=== PATIENT | female | born 1940 | race Caucasian/White ===

== ENCOUNTER 2021-12-29 08:26 | Emergency (ER) | payer OTHER ==
[2021-12-29] MEDS ORDERED: NA CHLORIDE 0.9% 500 ML ONE (08:58)
[2021-12-29 09:06] LABS: Absolute Lymphocytes (CBC) 1.2 K/uL (0.7-4.9); Hematocrit 44.3 % (36.0-45.0); Lymphocytes % 11.5 % (15.3-44.8); MCV 92.6 fL (80-100); MPV 8.4 fL (7.6-11.3); RBC Red Blood Cell Count 4.78 M/uL (3.86-4.86)
[2021-12-29 09:24] LABS: Albumin 3.4 g/dL (3.4-5.0); Bilirubin Total 0.6 mg/dL (0.2-1.0); Potassium 4.1 mmol/L (3.5-5.1); Protein, Total 6.7 g/dL (6.4-8.2)
[2021-12-29 09:54] LABS: Urine Blood Negative (Negative); Urine Glucose Negative (Negative); Urine Protein Negative (Negative)
--- NOTE | 2021-12-29 10:31 | RAD REPORT ---
EXAM DESCRIPTION: CT - Abdomen Pelvis W Contrast - 12/29/2021 9:49 am CLINICAL HISTORY: Abdominal pain, acute, nonlocalized COMPARISON: Abdomen Pelvis Wo Contrast dated 12/18/2021 TECHNIQUE: Biphasic, helical CT imaging of the abdomen and pelvis was performed following 100 ml non -ionic IV contrast. No oral contrast administered. All CT scans are performed using dose optimization technique as appropriate and may include automated exposure control or mA/KV adjustment according to patient size. FINDINGS: No acute lung base finding. No cardiomegaly or pericardial effusion. The liver, spleen, and pancreas show no suspicious findings. Cholecystectomy clips are present. No ab normal biliary tree dilatation. Symmetric renal function is seen with no hydronephrosis or suspicious renal mass. No pyelonephritis o r acute parenchymal process. Posterior right renal cyst has not changed over the short interval since 12/18. No adrenal abnormalities. Contracted bladder shows no suspicious finding. No stomach or small bowel abnormality. Large amount of stool fills the colon from cecum through splen ic flexure. There is prominent left-sided diverticulosis. Contrast material is present in the colon e xtending to the distal rectum. No contrast was administered for this study. This may be remnant PO co ntrast from a December 18 study. A 7-8 cm segment of the sigmoid colon shows circumferential wall thickening and edema. There is stran ding in the adjacent fat. This moderate diverticulitis pattern is not substantially different from . There is no extraluminal air, contrast or bowel content. No abscess has developed. No pneum atosis. No other site of inflammatory stranding. No hernia, mass or bulky lymphadenopathy. No suspicious bony findings. IMPRESSION: Moderate severity sigmoid diverticulitis pattern not substantially different from November 28. There is no extraluminal air, abscess or other emergent finding. Diverticulitis is the most likely etiology. Sigmoid malignancy is a differential consideration but le sser in likelihood. Follow-up colonoscopy can be performed after medical management of acute divertic ulitis.
--- NOTE | 2021-12-29 11:15 | EDPHYS ---
Physician Documentation [facility] Name: Kym Guallpa Age: 81 yrs Sex: Female : 1940 Arrival Date: 12/29/2021 Time: 08:27 Bed 6 Private MD: ED Physician Kurt Hinojosa HPI: 12/29 12:34 This 81 yrs old Female presents to ER via EMS with complaints of Abdominal Pain. kdr 12:34 The patient presents with abdominal pain in the upper abdomen. Onset: The kdr symptoms/episode began/occurred gradually, 1.5 week(s) ago. The symptoms do not radiate. Associated signs and symptoms: none. Pertinent positives: nausea, Pertinent negatives: anorexia, blood in stools, chest pain, diarrhea, dysuria, fever, headache, hematuria, shortness of breath, vomiting. The symptoms are described as achy, intermittent, vague, waxing/waning. Modifying factors: The symptoms are alleviated by nothing, the symptoms are aggravated by food, medication(s). Severity of pain: At its worst the pain was mild in the emergency department the pain is unchanged. The patient has experienced similar episodes in the past, a few times. The patient has been recently seen by a physician: the patient's primary care provider, was on abx for about five days (cipro/flagyl). Historical: - Allergies: 08:31 No Known Allergies; campos - PMHx: 08:31 Hypertensive disorder; Hypothyroidism; Diverticulitis; campos - Immunization history:: Adult Immunizations up to date. - Social history:: Smoking status: Patient denies any tobacco usage or history of. ROS: 12:34 Constitutional: Negative for fever, chills, and weight loss, Eyes: Negative for injury, kdr pain, redness, and discharge, Neck: Negative for injury, pain, and swelling, Cardiovascular: Negative for chest pain, palpitations, and edema, Respiratory: Negative for shortness of breath, cough, wheezing, and pleuritic chest pain, Back: Negative for injury and pain, : Negative for injury, bleeding, discharge, and swelling, MS/Extremity: Negative for injury and deformity, Skin: Negative for injury, rash, and discoloration, Neuro: Negative for headache, weakness, numbness, tingling, and seizure activity. Psych: Negative for depression, anxiety, suicide ideation, homicidal ideation, and hallucinations, Allergy/Immunology: Negative for hives, rash, and allergies, Endocrine: Negative for neck swelling, polydipsia, polyuria, polyphagia, and marked weight changes, Hematologic/Lymphatic: Negative for swollen nodes, abnormal bleeding, and unusual bruising. 12:34 Abdomen/GI: Positive for abdominal pain, nausea. Exam: 12:34 Constitutional: This is a well developed, well nourished patient who is awake, alert, kdr and in no acute distress. Head/Face: Normocephalic, atraumatic. Eyes: Pupils equal round and reactive to light, extra-ocular motions intact. Lids and lashes normal. Conjunctiva and sclera are non-icteric and not injected. Cornea within normal limits. Periorbital areas with no swelling, redness, or edema. Neck: Trachea midline, no thyromegaly or masses palpated, and no cervical lymphadenopathy. Supple, full range of motion without nuchal rigidity, or vertebral point tenderness. No Meningismus. Chest/axilla: Normal chest wall appearance and motion. Nontender with no deformity. No lesions are appreciated. Cardiovascular: Regular rate and rhythm with a normal S1 and S2. No gallops, murmurs, or rubs. Normal PMI, no JVD. No pulse deficits. Respiratory: Lungs have equal breath sounds bilaterally, clear to auscultation and percussion. No rales, rhonchi or wheezes noted. No increased work of breathing, no retractions or nasal flaring. Back: No spinal tenderness. No costovertebral tenderness. Full range of motion. Skin: Warm, dry with normal turgor. Normal color with no rashes, no lesions, and no evidence of cellulitis. MS/ Extremity: Pulses equal, no cyanosis. Neurovascular intact. Full, normal range of motion. Neuro: Awake and alert, GCS 15, oriented to person, place, time, and situation. Cranial nerves II-XII grossly intact. Motor strength 5/5 in all extremities. Sensory grossly intact. Cerebellar exam normal. Normal gait. Psych: Awake, alert, with orientation to person, place and time. Behavior, mood, and affect are within normal limits. 12:34 Abdomen/GI: Inspection: abdomen appears normal, Bowel sounds: active, all quadrants, Palpation: soft, mild abdominal tenderness, in the umbilical area. Vital Signs: 08:28 BP 141 / 62; Pulse 85; Resp 17; Temp 98.0; Pulse Ox 96% on R/A; Weight 61.23 kg; Height campos 5 ft. 5 in. (165.10 cm); 11:55 BP 136 / 62; Pulse 76; Resp 17; Temp 97.8; Pulse Ox 100% ; Pain 0/10; jh6 08:28 Body Mass Index 22.46 (61.23 kg, 165.10 cm) campos MDM: 11:14 Patient medically screened. kdr 12:34 Data reviewed: vital signs, nurses notes, lab test result(s), radiologic studies. kdr Counseling: I had a detailed discussion with the patient and/or guardian regarding: the historical points, exam findings, and any diagnostic results supporting the discharge/admit diagnosis, lab results, radiology results, the need for outpatient follow up. 12:39 Special discussion: Based on the patient's Hx, exam, and Dx evaluation, there is no kdr indication for emergent surgery or inpatient Tx. It is understood by the patient/guardian that if the Sx's persist or worsen they need to return immediately for re-evaluation. 12/29 08:28 Order name: CBC with Diff; Complete Time: 09:27 kdr 12/29 08:28 Order name: CMP; Complete Time: 09:27 kdr 12/29 08:28 Order name: Lipase; Complete Time: 09:27 kdr 12/29 08:43 Order name: CT Abd/Pelvis - IV Contrast Only; Complete Time: 11:09 kdr 12/29 09:54 Order name: Urine Dipstick-Ancillary; Complete Time: 11:09 EDMS 12/29 08:28 Order name: IV Saline Lock; Complete Time: 08:56 kdr 12/29 08:28 Order name: Labs collected and sent; Complete Time: 08:56 kdr 12/29 08:28 Order name: Urine Dipstick-Ancillary (obtain specimen); Complete Time: 09:49 kdr Administered Medications: 08:56 Drug: NS 0.9% 500 ml Route: IV; Rate: bolus; Site: right antecubital; campos 11:55 Drug: Augmentin (Amoxicillin-Clavulanate) 875 mg Route: PO; [facility] 11:59 Follow up: Response: No adverse reaction [facility] Disposition Summary: 12/29/21 11:14 Discharge Ordered Location: Home kdr Problem: new kdr Symptoms: have improved kdr Condition: Stable kdr Diagnosis - Diverticulitis of large intestine without perforation or abscess without bleeding kdr - Abdominal pain, Generalized kdr Followup: kdr - With: Private Physician - When: 2 - 3 days - Reason: If symptoms return, Further diagnostic work-up, Recheck today's complaints, Continuance of care, Re-evaluation by your physician Discharge Instructions: - Discharge Summary Sheet kdr - Diverticulitis, [id number] kdr - Abdominal Pain, Adult, [id number] kdr Forms: - Medication Reconciliation Form kdr - Thank You Letter kdr - Antibiotic Education kdr Prescriptions: - Augmentin 875-125 mg Oral Tablet - take 1 tablet by ORAL route every 12 hours for 10 days; 20 tablet; Refills: 0, kdr Product Selection Permitted - Zofran 4 mg Oral Tablet - take 1 tablet by ORAL route every 12 hours As needed; 6 tablet; Refills: 0, kdr Product Selection Permitted Signatures: Dispatcher [employer] Kurt Bach MD MD kdr Hastedt, Jennifer RN RN jh6 Georgina Gonzales RN RN campos
--- NOTE | 2021-12-29 11:15 | ER ---
Nurse's Notes [facility] Name: Kym Guallpa Age: 81 yrs Sex: Female : 1940 Arrival Date: 12/29/2021 Time: 08:27 Bed 6 Private MD: Diagnosis: Diverticulitis of large intestine without perforation or abscess without bleeding;Abdominal pain, Generalized Presentation: 12/29 08:28 Chief complaint: Patient states: lower abdominal pain. Coronavirus screen: Vaccine campos status: Patient reports receiving the 2nd dose of the covid vaccine. Ebola Screen: Patient denies travel to an Ebola-affected area in the 21 days before illness onset. Initial Sepsis Screen: Does the patient meet any 2 criteria? No. Patient's initial sepsis screen is negative. Does the patient have a suspected source of infection? No. Patient's initial sepsis screen is negative. Risk Assessment: Do you want to hurt yourself or someone else? Patient reports no desire to harm self or others. Onset of symptoms was December 29, 2021. 08:28 Method Of Arrival: EMS: [facility] campos 08:28 Acuity: [place] 3 campos Triage Assessment: 08:31 General: Appears in no apparent distress. Behavior is calm. Pain: Complains of pain in campos right lower quadrant and left lower quadrant. GI: Abdomen is flat, Bowel sounds present X 4 quads. Abd is soft and non tender Reports Pain is 7 out of 10 on a pain scale. Historical: - Allergies: 08:31 No Known Allergies; campos - PMHx: 08:31 Hypertensive disorder; Hypothyroidism; Diverticulitis; campos - Immunization history:: Adult Immunizations up to date. - Social history:: Smoking status: Patient denies any tobacco usage or history of. Screenin:33 Abuse screen: Denies threats or abuse. Denies injuries from another. Nutritional campos screening: No deficits noted. Tuberculosis screening: No symptoms or risk factors identified. Fall Risk None identified. Assessment: 08:45 General: Appears in no apparent distress. Behavior is calm, cooperative. Pain: jh6 Complains of pain in right lower quadrant and left lower quadrant Pain currently is 3 out of 10 on a pain scale. Quality of pain is described as crampy, Pain began suddenly, 4 hours ago. Is intermittent. GI: Abdomen is flat, non-distended, Last BM was December 29, 2021. Bowel sounds present X 4 quads. Abd is soft and non tender X 4 quads. Reports lower abdominal pain, Pain is 3 out of 10 on a pain scale. 09:41 Reassessment: Pt to CT now VIA wheelchair. Vital Signs: 08:28 BP 141 / 62; Pulse 85; Resp 17; Temp 98.0; Pulse Ox 96% on R/A; Weight 61.23 kg; Height campos 5 ft. 5 in. (165.10 cm); 11:55 BP 136 / 62; Pulse 76; Resp 17; Temp 97.8; Pulse Ox 100% ; Pain 0/10; jh6 08:28 Body Mass Index 22.46 (61.23 kg, 165.10 cm) ED Course: 08:27 Patient arrived in ED. ss 08:27 Kurt Hinojosa MD is Attending Physician. kdr 08:31 Triage completed. campos 08:31 Arm band placed on. campos 08:33 Patient has correct armband on for positive identification. Bed in low position. campos 08:33 No provider procedures requiring assistance completed. campos 09:02 Tracy Ridley, RN is Primary Nurse. [facility] 09:51 CT Abd/Pelvis - IV Contrast Only In Process Unspecified. EDMS 12:00 IV discontinued, intact, bleeding controlled, No redness/swelling at site. Pressure 6 dressing applied. Administered Medications: 08:56 Drug: NS 0.9% 500 ml Route: IV; Rate: bolus; Site: right antecubital; campos 11:55 Drug: Augmentin (Amoxicillin-Clavulanate) 875 mg Route: PO; [facility] 11:59 Follow up: Response: No adverse reaction [facility] Medication: 08:34 VIS not applicable for this client. Outcome: 11:14 Discharge ordered by . kdr 12:00 Discharged to home ambulatory. [facility] 12:00 Condition: good 12:00 Discharge instructions given to patient, family, Instructed on discharge instructions, follow up and referral plans. Demonstrated understanding of instructions, follow-up care, medications, Prescriptions given X 2. 12:00 Patient left the ED. [facility] Signatures: Dispatcher [employer] EDMS Kurt Hinojosa MD MD [facility] Richelle Geiger RN RN Tracy Ridley, NANDO COLLIER jh6 Au-Stager, Georgina, RN RN campos
[2021-12-29] MEDS ORDERED: AMOX/K CLAV 875 MG TAB ONE (11:49)
[2021-12-29 12:11] VITALS: BP 136/62; TEMP 97.8; O2SAT 100
== END 2021-12-29 12:00 | disposition home or self-care (01) ==
LOC: ER 08:26
DX: K57.32 Diverticulitis of large intestine without perforation or abscess without bleeding (principal); I10 Essential (primary) hypertension
CPT/HCPCS: 85025; 36415; 81003; 83690; 80053; 74177; 99284; Q9967; J7040

== ENCOUNTER 2021-12-31 14:18 | Inpatient (IN) | payer OTHER ==
[2021-12-31 15:14] VITALS: BMI 22.4
[2021-12-31 15:49] LABS: Absolute Lymphocytes (CBC) 1.5 K/uL (0.7-4.9); Hematocrit 43.8 % (36.0-45.0); Lymphocytes % 24.3 % (15.3-44.8); MCV 91.9 fL (80-100); MPV 8.6 fL (7.6-11.3); RBC Red Blood Cell Count 4.77 M/uL (3.86-4.86)
[2021-12-31] MEDS: NA CHLORIDE 0.9% 1,000 ML IV SCH (15:55)
[2021-12-31 16:00] LABS: Magnesium 2.4 mg/dL (1.8-2.4)
[2021-12-31] MEDS ORDERED: PIPER TAZO 3.375 GM in NA CHLORIDE 0.9% 100 ML IV ONE (16:00)
[2021-12-31] MEDS: ENOXAPARIN 40 MG/0.4 ML SQ SCH (18:24)
[2021-12-31] MEDS: METOPROLOL XL 25 MG TAB PO SCH (21:21)
[2022-01-01] MEDS: PIPER TAZO 3.375 GM in NA CHLORIDE 0.9% 100 ML IV SCH ×3 (01:44→17:57)
[2022-01-01] MEDS: NA CHLORIDE 0.9% 1,000 ML IV SCH ×2 (05:20→08:24)
--- NOTE | 2022-01-01 06:41 | HP ---
Date of Admission: 12/31/2021 Chief Complaint: Abdominal pain. History Of Present Illness: This is an 81-year-old very pleasant female patient who came into office about 2 weeks ago with lower abdominal pain. she was diagnosed as having acute diverticu litis and was started on Cipro and metronidazole for 10 days and day after I saw her, she had a CAT s can of abdomen and pelvis done, which was on December 18, 2021, showing moderate diverticulitis without a ny complications. The patient was seen for followup after the CAT scan was done after she started [facility] antibiotic and her symptoms had started to show some improvement. She had side effect with anti biotic with some mild soreness, but she did finish her antibiotic last week on Thursday and then on Thu, which is on December 29, 2021, she ended up in the emergency room again with different type of abdomi nal pain in the lower abdomen and more or less it is constant. Denies any fever, nausea, vomiting. She feels very weak, has poor appetite. After she ended up in the ER, she was re-evaluated, blood wo rk was done, repeat CAT scan showed persistence of diverticulitis changes compared to previous CAT sc an about 10 days ago and there was no complication noted. So patient was discharged from the ER to o home with Augmentin, which she is taking and today she came to see me with all these complaints and failure of outpatient antibiotic therapy. Decision was made to admit her to hospital. Allergies: TO CLINDAMYCIN CAUSING RASH AND ITCHING AND SULFA ALSO CAUSING RASH AND ITCHING. Medications: She takes, 1.Levothyroxine 75 mcg daily. 2.Metoprolol 25 mg 2 times a day. 3.Atorvastatin 10 mg daily. 4.Chlordiazepoxide/Clidinium 2.5/5 mg 1 capsule 3 times a day as needed. Review of Systems: GI: As mentioned above. Constitutional: As mentioned above. All other systems reviewed and negative. Past Medical History: Significant for hypothyroidism, impaired fasting glucose, burning mouth syndro me, hypertension, hyperlipidemia, gastroesophageal reflux disease, irritable bowel syndrome, divertic ulosis, cervical and lumbar spinal stenosis, osteoarthritis at multiple sites, osteopenia. Past Surgical History: Significant for cholecystectomy, appendectomy, , hysterectomy, back surgery. Family History: Father had coronary artery disease and hypertension. Mother, hypertension and strok e. Sister has coronary artery disease, hypertension, hyperlipidemia. Social History: Negative for smoking. Negative for alcohol use. Physical Examination: Vital Signs: Today at office when she was evaluated, blood pressure 116/70, pulse 78, temperature 98 degrees Fahrenheit, respiratory rate 18, weight 136.2 pounds, height 66 inches. General: Awake, alert, oriented, not in distress. HEENT: Head atraumatic, normocephalic. Conjunctivae nonerythematous. Sclerae white. Mouth, no thr ush or edema noted. Ears/Nose, no mass, lesion, discharge noted. Neck: Supple. No JVD, lymph nodes, bruit, thyromegaly noted. Lungs: Bilateral good equal air entry. Clear to auscultation. No rhonchi. No rales. Heart: Normal heart sounds, no murmur or gallop. Abdomen: Presence of tenderness in suprapubic and left lower quadrant. No rebound tenderness. Dio l sounds normoactive. No distention. No hepatosplenomegaly. No bruit. Extremities: No leg edema. No calf tenderness. Skin: No rash, ulcer, cellulitis. Lymphatics: No lymph node enlargement in neck, supraclavicular, infraclavicular region. Neuro: No focal neurological deficit. Chest: Unremarkable. External Genitalia: Deferred. Rectal: Deferred. Laboratory Data: White count 6.4, hemoglobin 14.7, platelets 276. Sodium 140, potassium 4, chloride 105, bicarb 31, BUN 8, creatinine 0.66, glucose 95, magnesium 2.4. CAT scan from 12/18/2021 and 08/2021 both shows moderate diverticulitis changes without any perforation. No abscess. Impression: 1.Acute diverticulitis without perforation, without bleeding. 2.Hypertension. 3.Hyperlipidemia. 4.Impaired fasting glucose. 5.Gastroesophageal reflux disease. 6.Irritable bowel syndrome. 7.Osteoarthritis, multiple sites. Plan: Admit patient to hospital for further evaluation and management of this problem. The patient is appropriate for inpatient and is expected to spend 2 midnights in hospital. The patient was admit emmett because of failure of outpatient oral antibiotic therapy, but she took Cipro and metronidazole fo r 10 days and just recently started taking Augmentin a couple of days ago from emergency room and so far she has failed outpatient antibiotic therapy, so she was admitted to the hospital. We will go ah ead and keep her on clear liquid diet. DVT prophylaxis with Lovenox will be given per order. Home m edications will be continued per order and we will give her IV Zosyn 3.375 g q.6 hours. The patient had appointment to see Dr. Kwok on outpatient basis today and I have advised her to cancel that appoi ntment and reschedule to see him in next 10-14 days. I will see her tomorrow for followup. Details and plan of treatment discussed with her. Her last colonoscopy was on July 15, 2021, showing dive rticulosis and polyps. INGRID/MODL Voice ID: [id number]
[2022-01-01] MEDS: LEVOTHYROXINE SOD 0.075 MG TAB PO SCH (07:21)
[2022-01-01] MEDS: METOPROLOL XL 25 MG TAB PO SCH ×2 (08:21→20:21)
[2022-01-01] MEDS: ENOXAPARIN 40 MG/0.4 ML SQ SCH (17:56)
[2022-01-01] MEDS: ENSURE CLEAR 200 ML CAN PO SCH (20:34)
[2022-01-02] MEDS: PIPER TAZO 3.375 GM in NA CHLORIDE 0.9% 100 ML IV SCH ×3 (00:57→17:18)
[2022-01-02] MEDS: NA CHLORIDE 0.9% 1,000 ML IV SCH (03:38)
--- NOTE | 2022-01-02 06:27 | PN ---
Date of Progress Note: 01/01/2022 Subjective: The patient was seen this morning for followup. She was lying in bed, not in distress. Reported that her abdominal pain is somewhat better today, compared to yesterday. Denies any nausea , vomiting. She is tolerating clear liquid diet well. Objective: Vital Signs: Reviewed. HEENT: Unremarkable. Lungs: Clear to auscultation. Cardiac: Heart sounds normal. Abdomen: Soft. Bowel sounds normal. No guarding, rigidity, distention. The patient has mild tender ness in left lower quadrant and suprapubic region which is better today than yesterday. No rebound t enderness. Extremities: No leg edema. Impression: 1.Acute diverticulitis. 2.Hypertension. 3.Hyperlipidemia. Plan: We will go ahead and continue to keep her on clear liquid diet. Continue IV Zosyn. We will e ncourage her to ambulate today. Continue current home medications. I will see her tomorrow for foll owup, possible discharge to go home tomorrow depending on her condition. INGRID/MODL Voice ID: [id number] Report ID: [id number]
[2022-01-02] MEDS: LEVOTHYROXINE SOD 0.075 MG TAB PO SCH (06:58)
[2022-01-02 07:52] LABS: Absolute Lymphocytes (CBC) 1.5 K/uL (0.7-4.9); Hematocrit 42.5 % (36.0-45.0); Lymphocytes % 32.5 % (15.3-44.8); MCV 91.1 fL (80-100); MPV 8.5 fL (7.6-11.3); RBC Red Blood Cell Count 4.67 M/uL (3.86-4.86)
[2022-01-02 08:05] LABS: Magnesium 2.2 mg/dL (1.8-2.4); Potassium 3.9 mmol/L (3.5-5.1)
[2022-01-02] MEDS: ENSURE CLEAR 200 ML CAN PO SCH ×2 (09:00→21:00)
[2022-01-02] MEDS: METOPROLOL XL 25 MG TAB PO SCH ×2 (10:30→21:01)
[2022-01-02] MEDS: ENOXAPARIN 40 MG/0.4 ML SQ SCH (17:18)
[2022-01-02 21:17] VITALS: O2SAT 98
[2022-01-03] MEDS: PIPER TAZO 3.375 GM in NA CHLORIDE 0.9% 100 ML IV SCH (00:03)
[2022-01-03] MEDS: NA CHLORIDE 0.9% 1,000 ML IV SCH (00:03)
--- NOTE | 2022-01-03 00:44 | PN ---
Date of Progress Note: 01/02/2022 Subjective: The patient was seen this morning for followup. No new complaints or problems reported by the patient. Lying in bed, not in any distress. Her abdominal pain is better, but not resolved. Objective: Vital Signs: Reviewed. HEENT: Unremarkable. Lungs: Clear to auscultation. Heart: Sounds normal. Abdomen: Soft. Bowel sounds normal. No guarding, rigidity. No rebound tenderness. The patient do es have mild tenderness in suprapubic and left lower quadrant. No rebound tenderness. Overall, the degree of tenderness is less today compared to yesterday. Extremities: No leg edema. Impression: 1.Acute diverticulitis. 2.Hypertension. 3.Hyperlipidemia. Plan: We will continue current IV fluid. Continue IV antibiotics. Advance diet from clear liquid t o full liquid diet. Ambulation was encouraged. I will see her tomorrow for followup. Possible disc harge to home tomorrow. INGRID/MODL Voice ID: [id number] Report ID: [id number]
[2022-01-03] MEDS: LEVOTHYROXINE SOD 0.075 MG TAB PO SCH (06:40)
[2022-01-03 09:04] VITALS: BP 151/84; TEMP 97.5
--- NOTE | 2022-01-04 01:08 | DS ---
Date of Discharge: 01/03/2022 The patient was seen this morning for followup. No new complaints or problems reported by the patien t. She was lying in bed, not in distress, feeling much better this morning, and as soon as I walked into her room, she reports that she is ready to go home. She is feeling much better and her abdomina l pain has practically gone away as she reports. Physical Examination: Vital Signs: Reviewed. HEENT: Unremarkable. Lungs: Bilateral good equal air entry. Clear to auscultation. Heart: Sounds normal. Abdomen: Soft. Bowel sounds normal. No guarding or rigidity. No rebound tenderness. Bowel sounds normoactive. Extremities: No leg edema. Hospital Course: This is 81 years old, was admitted to the hospital with acute diverticulitis and sh e failed outpatient oral antibiotic therapy. She took 10 days of Cipro and metronidazole and did not improve and ended up in the emergency room. Repeat CAT scan had shown persistent changes of diverti culitis, which was unchanged from prior CAT scan, which was about 12-14 days before this CAT scan and the patient was sent home with Augmentin and she came to see me 2 days after visit to emergency room , and considering not improving with oral antibiotic therapy, she was admitted to the hospital. Afte r she was admitted to the hospital, she was started on a clear liquid diet and started on IV Zosyn. DVT prophylaxis was given, using Lovenox. Overall, her condition improved significantly on a day-to- day basis during this hospitalization, and today, the patient reports that her pain has practically g one away and she was initially on clear liquid diet as of yesterday, we advanced it to full liquid di et, and today, I had given her instruction and I would like , which is low-fiber diet for t he next week to two weeks. The patient has an appointment to see me next week and she was encouraged to keep that appointment. Final Diagnoses: 1.Acute diverticulitis without perforation, without bleeding. 2.Hypertension. 3.Hyperlipidemia. 4.Impaired fasting glucose. 5.Gastroesophageal reflux disease. 6.Irritable bowel syndrome. 7.Osteoarthritis, multiple sites. Laboratory Data: Upon admission, white count 6.4, hemoglobin 14.7, platelets 276, and yesterday, whi te count 4.5, hemoglobin 14.4, platelets 276. Upon admission, sodium 140, potassium 4, chloride 105, bicarb 31, BUN 8, creatinine 0.66, glucose 95. Yesterday, sodium 141, potassium 3.9, chloride 108, bicarb 31, BUN 4, creatinine 0.79, glucose 95, magnesium 2.2. Discharge Medications And Instructions: 1.Continue all prior home medications including antibiotic, which is Augmentin. 2.Follow up at my office next week as per your appointment. 3.Diet, low-fiber diet. INGRID/MODL Voice ID: [id number] Report ID: [id number]
== END 2022-01-03 10:00 | disposition home or self-care (01) | DRG 392 ==
LOC: 2ND 14:18
PROVIDERS: ADMIT Internal Medicine; ATTEND Internal Medicine
DX: K57.92 Diverticulitis of intestine, part unspecified, without perforation or abscess without bleeding (principal); I10 Essential (primary) hypertension; E78.5 Hyperlipidemia, unspecified; R73.01 Impaired fasting glucose; K21.9 Gastro-esophageal reflux disease without esophagitis; K58.9 Irritable bowel syndrome, unspecified; M15.9 Polyosteoarthritis, unspecified; E03.9 Hypothyroidism, unspecified; M85.80 Other specified disorders of bone density and structure, unspecified site; M48.02 Spinal stenosis, cervical region; M48.061 Spinal stenosis, lumbar region without neurogenic claudication; Z88.2 Allergy status to sulfonamides; Z88.3 Allergy status to other anti-infective agents; Z90.49 Acquired absence of other specified parts of digestive tract; Z90.710 Acquired absence of both cervix and uterus; Z82.49 Family history of ischemic heart disease and other diseases of the circulatory system; Z82.3 Family history of stroke
CPT/HCPCS: 36415; 74177; 80048; 80053; 81003; 83690; 83735; 85025; 99284; J1650; J2543; J7030; J7040; Q9967; U0003

== ENCOUNTER → 2022-10-22 | Day surgery (SDC) | payer OTHER ==
--- NOTE | 2022-10-23 10:25 | RAD REPORT ---
EXAM DESCRIPTION: US - Breast Core BX w/US Guidance - 10/22/2022 11:15 am CLINICAL HISTORY: ICD N63.11, R93.8 COMPARISON: October 09, 2022 ultrasound TECHNIQUE: The risks, benefits alternatives to the procedure were explained to the patient and infor med consent obtained. Skin, subcutaneous and breast tissues anesthetized with lidocaine. Under sonographic guidance, three 14 gauge vacuum assisted core biopsies of the previously described 7 millimeter mass within the retroareolar right breast were obtained. 2 centimeter specimens taken. Materials given to pathology. Subsequently a localizing clip was placed. Patient experienced no immediate complication Sonographic evaluation of the additional previously described 7 millimeter vague hypoechoic structure was performed. This has the appearance of fibroglandular tissue rather than a mass so a biopsy of th is was not performed. IMPRESSION: Vacuum assisted core biopsies of the right breast mass
== END ==
LOC: DS 09:11
PROVIDERS: ATTEND Obstetrics & Gynecology
DX: N60.81 Other benign mammary dysplasias of right breast (principal)
CPT/HCPCS: 19083; 88305

== ENCOUNTER 2024-06-29 12:21 | Emergency (ER) | payer OTHER ==
--- OUTSIDE RECORDS SUMMARY | 2024-06-29 12:24 | XMS REPORT | Continuity of Care Document ---
Author Name Unknown Address [address] [facility] 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 Role Phone Mark PORTER, Augustin Rush Primary Care Physician [phone] Sukhwinder Perez Attending Clinician Unavailable Leo Amos MD Attending Clinician [phone] LEO AMOS Attending Clinician Unavail able Kristi Sharma MA Attending Clinician UnavailBrooks Morejon Attending Clinician Unavailabl e [email or web address] Attending Clinician Unavaila ble FOG_A_Provider Attending Clinician Unavailable Sukhwinder Perez Attending Clinician [phone] Sukhwinder Perez Admitting Clinician Unavailable [email or web address] Admitting Clinician Unavaila ble FOG_A_Provider Admitting Clinician Unavailable KNOW, DOES_NOT Admitting Clinician Unavailable Payers Payer Name Policy Type Policy Number Effective Date Expirati on Date Source [facility] MEDICARE ADVANTAGE Medicare [id number] 2023 00:00:00 [facility] [id number] [facility] (MEDICARE REPLACEMENT/ADVANTA GE - PPO) [id number] Problems Condition Name Condition Details Condition Category Status Onset Date Resolution Date Last Treatment Date Treating Clinician Comments Source Lumbar radiculopa thy Lumbar Radiculopa thy Problem Active 01-12 00:00: 00 [facility] Spinal stenosis of lumbar region Spinal Stenosis of Lumbar Region Problem Active 01-11 00:00: 00 [facility] 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 Problem Active 01-11 00:00: 00 [facility] Stenosis of spinal canal due to subluxatio n Stenosis of Spinal Canal Due to Subluxatio n Problem Active 01-11 00:00: 00 [facility] Lumbar spondyloli sthesis Lumbar Spondyloli sthesis Problem Active 01-11 00:00: 00 [facility] Dizziness Dizziness Disease Active 11-14 00:00: 00 Mirna Llamas Headache Headache Disease Active 11-14 00:00: 00 Mirna Llamas Hyperlipid emia Hyperlipid emia Disease Active 11-14 00:00: 00 Mirna Llamas Memory loss Memory loss Disease Active 11-14 00:00: 00 Mirna Llamas Repeated falls Repeated falls Disease Active 11-14 00:00: 00 Mirna Llamas 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 ) with memory loss Disease Active 11-14 00:00: 00 Mirna Llamas Acquired renal cystic disease Acquired Renal Cystic Disease Problem Active 10-15 00:00: 00 [facility] Mass of right breast Mass of Right Breast Problem Active 10-15 00:00: 00 [facility] Inconclusi ve mammograph y finding Inconclusi ve Mammograph y Finding Problem Active 4-05 00:00: 00 [facility] Abnormal findings on diagnostic imaging of breast Abnormal Findings on Diagnostic Imaging of Breast Problem Active 4-05 00:00: 00 [facility] Abdominal distension , gaseous Abdominal Distension , Gaseous Problem Active 3-16 00:00: 00 [facility] Spondylosi s with radiculopa thy Spondylosi s with Radiculopa thy Problem Active 8-19 00:00: 00 [facility] 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 Problem Active 8-19 00:00: 00 [facility] Neck pain Neck Pain Problem Active 8- 00:00: 00 [facility] Screening mammograph y Screening Mammograph y Problem Active 2 00:00: 00 [facility] Fibrocysti c disease of breast Fibrocysti c Disease of Breast Problem Active 2015-06 0 00:00: 00 [facility] Radiculopa thy, lumbar region Radiculopa thy, lumbar region Disease Active 2014-06 00:00: 00 Mirna Mcallister [facility] Spinal stenosis, cervical region Spinal stenosis, cervical region Disease Active 2014-06 00:00: 00 Mirna Mcallister [facility] Essential hypertensi on Essential Hypertensi on Problem Active 03-26 00:00: 00 [facility] Atrophic vaginitis Atrophic Vaginitis Problem Active 03-26 00:00: 00 [facility] Menopause present Menopause Present Problem Active 03-26 00:00: 00 [facility] Gynecologi malissa examinatio n abnormal Gynecologi malissa Examinatio n Abnormal Problem Active 03-26 00:00: 00 [facility] Common peroneal neuropathy Common peroneal neuropathy Disease Active 12-02 00:00: 00 Mirna Llamas Essential hypertensi on Essential hypertensi on Disease Active 11-24 00:00: 00 Mirna Mcallister [facility] Hypothyroi dism Hypothyroi dism Disease Active 11-24 00:00: 00 Mirna Llamas Muscle wasting and atrophy, not elsewhere classified , unspecifie d site Muscle wasting and atrophy, not elsewhere classified , unspecifie d site Disease Active 11-24 00:00: 00 Mirna Llamas Allergies, Adverse Reactions, Alerts Allergy Name Allergy Type Status Severity Reaction(s) Onset Date Inactive Date Treating Clinician Comments Source No Known Allergie s DA Active U 01-24 00:00: 00 [facility] Sulfa Antibiot ics Drug Allergy Active Unknown 11-30 00:00: 00 Mirna prieto [place] Muriel SULFA ANTIBIOT ICS Drug Class Active Unknown 11-30 00:00: 00 [facility] Clindamy sergey Allergy to substanc e Active 11-14 00:00: 00 Mirna prieto Esvin Muriel Sulfamet hoxazole -Trimeth oprim Allergy to substanc e Active 11-14 00:00: 00 Mirna prieto [place] Muriel CLINDAMY SERGEY DRUG INGREDI Active 11-14 00:00: 00 [facility] SULFAMET HOXAZOLE -TRIMETH OPRIM DRUG INGREDI Active 11-14 00:00: 00 [facility] Sulfa (Sulfona mide Antibiot ics) DA Active [place] REPORTED BY PHARMACY 03-05 00:00: 00 [facility] SULFA (SULFONA MIDE ANTIBIOT ICS) Allergy to substanc e Active Rash [facility] Social History Social Habit Start Date Stop Date Quantity Comments Source Gender identity 2023-09-19 15:47:37 Identifies as female gender (finding) [facility] Sexual orientation [facility] History of tobacco use Cigarette Smoker [facility] ASSERTION Possible [facility] Alcoholic beverage intake 2024-06-16 00:00:00 2024-06-16 00:00:00 Lifetime non-drinker (finding) [facility] History of Social function 2024-06-16 00:00:00 2024-06-16 00:00:00 [facility] Tobacco use and exposure 2023-12-01 00:00:00 2023-12-01 00:00:00 Smokeless tobacco non-user [facility] Smoking Status Start Date Stop Date Source Ex-smoker 2023-12-01 00:00:00 2023-12-01 00:00:00 M pee Mcallister [facility] Medications Ordered Medication Name Filled Medication Name Start Date Stop Date Current Medication? Ordering Clinician Indication Dosage Frequency Signature (SIG) Comments Components Source atorvastati n (Lipitor) 40 MG tablet atorvastati n (Lipitor) 40 MG tablet 2023-06 09:38: 13 Yes 40mg QD Take 40 mg by mouth 1 time each day. Mirna Mcallister [facility] memantine (Namenda) 5 MG tablet memantine (Namenda) 5 MG tablet 2023-06 00:00: 00 11-29 23:59 :00 No 5mg Q.5D Take 1 tablet by mouth in the morning and 1 tablet in the evening. [facility] clidinium-c hlordiazePO XIDE (Librax) 5-2.5 MG capsule clidinium-c hlordiazePO XIDE (Librax) 5-2.5 MG capsule 11-30 12:04: 25 Yes 1{capsu le} [id number] 3D Take 1 capsule by mouth 3 times a day as needed for cramping. [facility] Multiple Vitamin (multivitam in) capsule Multiple Vitamin (multivitam in) capsule 11-30 12:04: 25 Yes 1{capsu le} QD Take 1 capsule by mouth 1 time each day. Mirna prieto [facility] cholecalcif juventino (Vitamin D-3) 50 MCG (1999) tablet cholecalcif juventino (Vitamin D-3) 50 MCG (1999) tablet 11-30 12:04: 25 Yes 1000U QD Take 1,000 Units by mouth 1 time each day. [facility] zinc gluconate 50 MG tablet zinc gluconate 50 MG tablet 11-30 12:04: 25 Yes 50mg QD Take 50 mg by mouth 1 time each day. [facility] magnesium oxide (Mag-Ox) 250 MG tablet magnesium oxide (Mag-Ox) 250 MG tablet 11-30 12:00: 58 Yes 250mg QD Take 250 mg by mouth 1 time each day. Mirna Mcallister [facility] memantine (Namenda) 5 MG tablet memantine (Namenda) 5 MG tablet 6-04 00:00: 00 06-02 00:00 :00 No 5mg Q.5D Take 1 tablet by mouth in the morning and 1 tablet in the evening. Mirna Mcallister [facility] memantine (Namenda) 5 MG tablet memantine (Namenda) 5 MG tablet 18 00:00: 00 11-30 00:00 :00 No 5mg Q.5D Take 5 mg by mouth in the morning and 5 mg in the evening. Mirna Mcallister [facility] chlordiazep oxide-clidi nium 5 mg-2.5 mg capsule 1 capsule before meals; Twice a day chlordiazep oxide-clidi nium 5 mg-2.5 mg capsule 1 capsule before meals; Twice a day -18 00:00: 00 No chlordiaze poxide-cli dinium 5 mg-2.5 mg capsule 1 capsule before meals; Twice a day [facility] metoprolol tartrate 25 mg tablet 1 tablet; Twice a day metoprolol tartrate 25 mg tablet 1 tablet; Twice a day 3-18 00:00: 00 No metoprolol tartrate 25 mg tablet 1 tablet; Twice a day [facility] Synthroid 75 mcg tablet 1 tablet; Once a day Synthroid 75 mcg tablet 1 tablet; Once a day -18 00:00: 00 No Synthroid 75 mcg tablet 1 tablet; Once a day [facility] Vitamin B12 Vitamin B12 3-18 00:00: 00 No Vitamin B12 [facility] Vitamin C Vitamin C 3-18 00:00: 00 No Vitamin C [facility] pantoprazol e (ProtoNix) 40 MG EC tablet pantoprazol e (ProtoNix) 40 MG EC tablet 2-20 00:00: 00 Yes 40mg Take 40 mg by mouth in the morning. Take before meals. Mirna Mcallister [facility] biotin 5 MG capsule biotin 5 MG capsule 7-23 00:00: 00 06-16 00:00 :00 No 0 Refill(s) Mirna Mcallister [facility] B Complex Vitamins (B COMPLEX 100 PO) B Complex Vitamins (B COMPLEX 100 PO) 01-18 00:00: 00 06-16 00:00 :00 No 0 Refill(s) Mirna Llamas ascorbic acid (Vitamin C) 500 mg chewable tablet ascorbic acid (Vitamin C) 500 mg chewable tablet 01-18 00:00: 00 11-30 00:00 :00 No PO, Daily, 0 Refill(s) Mirna Mcallister [facility] levothyroxi ne (Synthroid) 75 MCG tablet levothyroxi ne (Synthroid) 75 MCG tablet 09-10 00:00: 00 Yes 75ug 75 microgram = 1 tab, PO, Daily, 0 Refill(s) Mirna Llamas metoprolol tartrate (Lopressor) 25 MG tablet metoprolol tartrate (Lopressor) 25 MG tablet 09-10 00:00: 00 Yes 25mg 25 mg = 1 tab, PO, BID, 0 Refill(s) Mirna Llamas Cyanocobala min (VITAMIN B-12 CR PO) Cyanocobala min (VITAMIN B-12 CR PO) 09-10 00:00: 00 06-16 00:00 :00 No 1000mg QD 0 Refill(s) Mirna Llamas clidinium-c hlordiazePO XIDE (Librax) 5-2.5 MG capsule clidinium-c hlordiazePO XIDE (Librax) 5-2.5 MG capsule 09-10 00:00: 00 11-30 00:00 :00 No 2{capsu le} Take 2 capsules by mouth in the morning and 2 capsules at noon and 2 capsules in the evening and 2 capsules before bedtime. Take before meals. Mirna Mcallister [facility] amoxicillin 875 mg-potassiu m clavulanate 125 mg tablet TAKE 1 TABLET BY MOUTH EVERY 12 HOURS FOR 10 DAYS amoxicillin 875 mg-potassiu m clavulanate 125 mg tablet TAKE 1 TABLET BY MOUTH EVERY 12 HOURS FOR 10 DAYS No amoxicilli n 875 mg-potassi um clavulanat e 125 mg tablet TAKE 1 TABLET BY MOUTH EVERY 12 HOURS FOR 10 DAYS [facility] ciprofloxac in 500 mg tablet ciprofloxac in 500 mg tablet No ciprofloxa sergey 500 mg tablet [facility] duloxetine 30 mg capsule,del ayed release duloxetine 30 mg capsule,del ayed release No duloxetine 30 mg capsule,de layed release [facility] gabapentin 100 mg capsule TAKE 1 CAPSULE BY MOUTH THREE TIMES DAILY gabapentin 100 mg capsule TAKE 1 CAPSULE BY MOUTH THREE TIMES DAILY No 1capsul e(s) TID gabapentin 100 mg capsule TAKE 1 CAPSULE BY MOUTH THREE TIMES DAILY [facility] hyoscyamine 0.125 mg sublingual tablet hyoscyamine 0.125 mg sublingual tablet No hyoscyamin e 0.125 mg sublingual tablet [facility] metoprolol succinate ER 25 mg tablet,exte nded release 24 hr metoprolol succinate ER 25 mg tablet,exte nded release 24 hr No metoprolol succinate ER 25 mg tablet,ext ended release 24 hr [facility] metronidazo le 500 mg tablet metronidazo le 500 mg tablet No metronidaz ole 500 mg tablet [facility] omeprazole 40 mg capsule,del ayed release omeprazole 40 mg capsule,del ayed release No omeprazole 40 mg capsule,de layed release [facility] ondansetron HCl 4 mg tablet TAKE 1 TABLET BY MOUTH EVERY 12 HOURS NEEDED FOR NAUSEA ondansetron HCl 4 mg tablet TAKE 1 TABLET BY MOUTH EVERY 12 HOURS NEEDED FOR NAUSEA No ondansetro n HCl 4 mg tablet TAKE 1 TABLET BY MOUTH EVERY 12 HOURS NEEDED FOR NAUSEA [facility] Restasis 0.05 % eye drops in a dropperette Restasis 0.05 % eye drops in a dropperette No Restasis 0.05 % eye drops in a dropperett e [facility] acetaminoph en 300 mg-codeine 60 mg tablet Take 1 tablet every 6 hours by oral route. acetaminoph en 300 mg-codeine 60 mg tablet Take 1 tablet every 6 hours by oral route. No 1 Q6H acetaminop hen 300 mg-codeine 60 mg tablet Take 1 tablet every 6 hours by oral route. [facility] dicyclomine 10 mg capsule dicyclomine 10 mg capsule No dicyclomin e 10 mg capsule [facility] Medrol (Deric) 4 mg tablets in a dose pack TAKE INSTRUCTED ON A PACK Medrol (Deric) 4 mg tablets in a dose pack TAKE INSTRUCTED ON A PACK No Medrol (Deric) 4 mg tablets in a dose pack TAKE INSTRUCTED ON A PACK [facility] methocarbam ol 500 mg tablet Take 1 tablet every 8 hours by oral route. methocarbam ol 500 mg tablet Take 1 tablet every 8 hours by oral route. No 1 Q8H methocarba mol 500 mg tablet Take 1 tablet every 8 hours by oral route. [facility] methylpredn isolone 4 mg tablet methylpredn isolone 4 mg tablet No methylpred nisolone 4 mg tablet [facility] triamcinolo ne acetonide 0.1 % topical cream triamcinolo ne acetonide 0.1 % topical cream No triamcinol one acetonide 0.1 % topical cream [facility] amlodipine 5 mg tablet amlodipine 5 mg tablet No amlodipine 5 mg tablet [facility] amoxicillin 500 mg-potassiu m clavulanate 125 mg tablet TAKE DIRECTED 1 TABLET BY MOUTH EVERY 8 HOURS FOR 7 DAYS amoxicillin 500 mg-potassiu m clavulanate 125 mg tablet TAKE DIRECTED 1 TABLET BY MOUTH EVERY 8 HOURS FOR 7 DAYS No amoxicilli n 500 mg-potassi um clavulanat e 125 mg tablet TAKE DIRECTED 1 TABLET BY MOUTH EVERY 8 HOURS FOR 7 DAYS [facility] azithromyci n 250 mg tablet azithromyci n 250 mg tablet No azithromyc in 250 mg tablet [facility] brimonidine 0.1 % eye drops INSTILL 1 DROP INTO BOTH EYES TWICE DAILY brimonidine 0.1 % eye drops INSTILL 1 DROP INTO BOTH EYES TWICE DAILY No brimonidin e 0.1 % eye drops INSTILL 1 DROP INTO BOTH EYES TWICE DAILY [facility] Cequa 0.09 % eye drops in a dropperette Cequa 0.09 % eye drops in a dropperette No Cequa 0.09 % eye drops in a dropperett e [facility] fluticasone propionate 50 mcg/actuati on nasal spray,suspe nsion USE DIRECTED IN EACH NOTRIL ONCE DAILY FOR 30 DAYS fluticasone propionate 50 mcg/actuati on nasal spray,suspe nsion USE DIRECTED IN EACH NOTRIL ONCE DAILY FOR 30 DAYS No fluticason e propionate 50 mcg/actuat ion nasal spray,susp ension USE DIRECTED IN EACH NOTRIL ONCE DAILY FOR 30 DAYS [facility] ketoconazol e 2 % topical cream ketoconazol e 2 % topical cream No ketoconazo le 2 % topical cream [facility] Linzess 72 mcg capsule Linzess 72 mcg capsule No Linzess 72 mcg capsule [facility] mupirocin 2 % topical ointment mupirocin 2 % topical ointment No mupirocin 2 % topical ointment [facility] prednisone 10 mg tablet TAKE 1 TABLET BY MOUTH TWICE DAILY FOR 10 DAYS prednisone 10 mg tablet TAKE 1 TABLET BY MOUTH TWICE DAILY FOR 10 DAYS No prednisone 10 mg tablet TAKE 1 TABLET BY MOUTH TWICE DAILY FOR 10 DAYS [facility] status covid-19/fl u a&b antigen tst TEST DIRECTED TODAY status covid-19/fl u a&b antigen tst TEST DIRECTED TODAY No status covid-19/f heriberto a&b antigen tst TEST DIRECTED TODAY [facility] Suprep Bowel Prep Kit 17.5 gram-3.13 gram-1.6 gram oral solution Suprep Bowel Prep Kit 17.5 gram-3.13 gram-1.6 gram oral solution No Suprep Bowel Prep Kit 17.5 gram-3.13 gram-1.6 gram oral solution [facility] biotin 10,000 mcg capsule Take by oral route. biotin 10,000 mcg capsule Take by oral route. No biotin 10,000 mcg capsule Take by oral route. [facility] Iron (ferrous sulfate) 325 mg (65 mg iron) tablet Take 1 tablet every day by oral route. Iron (ferrous sulfate) 325 mg (65 mg iron) tablet Take 1 tablet every day by oral route. No 1 Q1D Iron (ferrous sulfate) 325 mg (65 mg iron) tablet Take 1 tablet every day by oral route. [facility] magnesium magnesium No magnesium [facility] Multivitami n 50 Plus Multivitami n 50 Plus No Multivitam in 50 Plus [facility] Osteo Bi-Flex Osteo Bi-Flex No Osteo Bi-Flex [facility] pantoprazol e pantoprazol e No pantoprazo le [facility] zinc (glycinate) 30 mg capsule Take by oral route. zinc (glycinate) 30 mg capsule Take by oral route. No zinc (glycinate ) 30 mg capsule Take by oral route. [facility] Vital Signs Vital Name Observation Time Observation Value Comments S ource Systolic blood pressure 2024-06-16 09:38:00 162 mm[Hg] [facility] Diastolic blood pressure 2024-06-16 09:38:00 76 mm[Hg] [facility] Heart rate 2024-06-16 09:38:00 55 /min [facility] Body temperature 2024-06-16 09:38:00 36.22 Sarah [facility] Respiratory rate 2024-06-16 09:38:00 16 /min [facility] Body height 2024-06-16 09:38:00 162.6 cm [facility] Body weight 2024-06-16 09:38:00 64.864 kg [facility] BMI 2024-06-16 09:38:00 24.55 kg/m2 [facility] Oxygen saturation in Arterial blood by Pulse oximetry 2024-06-16 09:38:00 97 /min [facility] Systolic blood pressure 2024-06-16 09:38:00 162 mm[Hg] [facility] Diastolic blood pressure 2024-06-16 09:38:00 76 mm[Hg] [facility] Heart rate 2024-06-16 09:38:00 55 /min [facility] Body temperature 2024-06-16 09:38:00 36.22 Sarah [facility] Respiratory rate 2024-06-16 09:38:00 16 /min [facility] Body height 2024-06-16 09:38:00 162.6 cm Abhay rial Esvin [facility] Body weight 2024-06-16 09:38:00 64.864 kg Abhay rial Esvin [facility] BMI 2024-06-16 09:38:00 24.55 kg/m2 Abhay rial Esvin [facility] Oxygen saturation in Arterial blood by Pulse oximetry 2024-06-16 09:38:00 97 /min [facility] Systolic blood pressure 2024-06-02 14:24:00 161 mm[Hg] [facility] Diastolic blood pressure 2024-06-02 14:24:00 77 mm[Hg] [facility] Heart rate 2024-06-02 14:24:00 80 /min Memor ial [place] [facility] Body temperature 2024-06-02 14:24:00 36.5 [facility] Respiratory rate 2024-06-02 14:24:00 16 /min [facility] Body height 2024-06-02 14:24:00 162.6 cm Abhay rial [place] [facility] Body weight 2024-06-02 14:24:00 63.413 kg Abhay rial [place] [facility] BMI 2024-06-02 14:24:00 24.00 kg/m2 Abhay rial [place] [facility] Systolic blood pressure 2024-06-02 14:24:00 161 mm[Hg] [facility] Her nelson [facility] Diastolic blood pressure 2024-06-02 14:24:00 77 mm[Hg] [facility] Heart rate 2024-06-02 14:24:00 80 /min Memor ial Esvin [facility] Body temperature 2024-06-02 14:24:00 36.5 [facility] Epic Respiratory rate 2024-06-02 14:24:00 16 /min [facility] Body height 2024-06-02 14:24:00 162.6 cm Abhay rial [place] [facility] Body weight 2024-06-02 14:24:00 63.413 kg Abhay rial Esvin [facility] BMI 2024-06-02 14:24:00 24.00 kg/m2 Abhay rial Esvin [facility] Systolic blood pressure 2023-12-01 12:07:00 146 mm[Hg] [facility] Diastolic blood pressure 2023-12-01 12:07:00 79 mm[Hg] Courtney nelson [facility] Heart rate 2023-12-01 12:07:00 79 /min Memor ial Esvin [facility] Body temperature 2023-12-01 12:07:00 36.78 Sarah Courtney Mcallister [facility] Respiratory rate 2023-12-01 12:07:00 16 /min Courtney Mcallister [facility] Body height 2023-12-01 12:07:00 162.6 cm Abhay chantal Mcallister [facility] Body weight 2023-12-01 12:07:00 62.415 kg Abhay chantal Mcallister [facility] BMI 2023-12-01 12:07:00 23.62 kg/m2 Abhay chantal Mcallister [facility] Oxygen saturation in Arterial blood by Pulse oximetry 2023-12-01 12:07:00 96 /min Courtney nelson [facility] Systolic blood pressure 2023-12-01 12:07:00 146 mm[Hg] Courtney nelson [facility] Diastolic blood pressure 2023-12-01 12:07:00 79 mm[Hg] Courtney nelson [facility] Heart rate 2023-12-01 12:07:00 79 /min Memor ial Esvin [facility] Body temperature 2023-12-01 12:07:00 36.78 Sarah Courtney Mcallister [facility] Respiratory rate 2023-12-01 12:07:00 16 /min Courtney Mcallister [facility] Body height 2023-12-01 12:07:00 162.6 cm Abhay chantal Mcallister [facility] Body weight 2023-12-01 12:07:00 62.415 kg Abhay chantal Mcallister [facility] BMI 2023-12-01 12:07:00 23.62 kg/m2 Abhay chantal Mcallister [facility] Oxygen saturation in Arterial blood by Pulse oximetry 2023-12-01 12:07:00 96 /min Courtney nelson [facility] Body Weight 2023-09-14 00:00:00 137.6 [lb_av] [facility] BMI (Body Mass Index) 2023-09-14 00:00:00 23.6 kg/m2 [facility] BP Systolic 2023-09-14 00:00:00 156 mm[Hg] [facility] BP Diastolic 2023-09-14 00:00:00 73 mm[Hg] [facility] Height 2023-09-14 00:00:00 64 [in_i] [facility] Height 2022-05-09 00:00:00 65 [in_i] [facility] Height 2022-02-25 00:00:00 65 [in_i] [facility] Height 2022-02-12 00:00:00 65 [in_i] [facility] Height 2022-02-05 00:00:00 65 [in_i] [facility] BMI (Body Mass Index) 2022-02-05 00:00:00 22.5 kg/m2 [facility] Body Weight 2022-02-05 00:00:00 135 [lb_av] [facility] Procedures Procedure Date / Time Performed Performing Clinician Source RADEX SPI LUMBOSAC MINIMUM 4 VIEWS 2023-12-23 00:00:00 [facility] RADEX SPI CRV MINIMUM 4 VIEWS 2023-12-23 00:00:00 [facility] MRI, lumbar spine, w/o contrast 2023-12-23 00:00:00 [facility] Lumbar Spinal Fusion 2023-03-29 00:00:00 [facility] RADEX SPI CRV MINIMUM 4 VIEWS 2022-06-06 00:00:00 [facility] RADEX SPI CRV MINIMUM 4 VIEWS 2022-05-09 00:00:00 [facility] [id number] 2022-04-24 00:00:00 [facility] [id number] 2022-04-24 00:00:00 [facility] [id number] 2022-04-24 00:00:00 [facility] [id number] 2022-04-24 00:00:00 [facility] [facility] RADEX SPI CRV MINIMUM 4 VIEWS 2022-02-05 00:00:00 [facility] MRI CERVICAL SPINE W/O CONTRAST 2022-02-05 00:00:00 [facility] Cholecystectomy 2010-06-29 00:00:00 [facility] Append[facility] Medical Plan of Care Planned Activity Planned Date Details Comments Source Diagnostic Test Pending 2023-09-14 00:00:00 urin alysis, dipstick [code = urinalysis, dipstick] [facility] Future Appointment 2024-09-15 13:00:00 Yadira wrad, [address]; [address], [place] [address] [facility] Medical Encounters Start Date/Time End Date/Time Encounter Type Admission Type Attending Clinicians Care Facility Care Department Encounter ID Source 2022-03-05 15:00:00 Inpatient Sukhwinder Dickens [facility] SURG [id number] [facility] [place] [facility] 2024-06-16 09:30:00 2024-06-16 10:23:53 Office Visit Leo Amos [id number] 350.1.13.70 8.2.7.2.686 [id number] Mirna prieto [facility] 2024-06-16 09:25:49 2024-06-16 10:23:53 Outpatient LEO AMOS MHEOUT MHEOUT [id number] [facility] 2024-06-13 00:00:00 2024-06-13 17:09:04 Telephone Kristi Sharma [place] 1.2.840.114 350.1.13.70 8.2.7.2.686 [id number] [facility]24-[facility]-02 14:15:00 2024-06-02 14:45:32 Office Visit Leo Amos 1.2.840.114 350.1.13.70 8.2.7.2.686 [id number] Mirna prieto [facility] 2024-06-02 14:10:48 2024-06-02 14:45:32 Outpatient LEO AMOS MHEOUT MHEOUT [id number] [facility] 2024-02-09 00:00:00 2024-02-09 00:00:00 Sukhwinder Perez MD: [address] [place] [phone] , Ph. [phone] [place] [facility] FOG_Ofc [facility] [place] [id number] [facility] 2024-01-25 12:44:00 2024-01-25 12:44:00 Outpatient Brooks Chavarria [facility]AT[facility] PAIN [id number] [facility] 2024-01-25 00:00:00 2024-01-25 00:00:00 Brooks Ayala MD: [address] [place] [address] , Ph. [place] [facility] FOG_[facility]_OP [id number] [facility] 2024-01-13 00:00:00 2024-01-13 00:00:00 Brooks Ayala MD: [address] [place] [address] , Ph. [phone] [facility] [place] [facility] - FOG_Ofc [facility] [id number] [facility] 2024-01-12 10:25:00 2024-01-12 10:25:00 Outpatient Sukhwinder Dickens HCAT[facility] RADI [id number] [facility] 2024-01-12 00:00:00 2024-01-12 00:00:00 Sukhwinder Perez MD: [address] [place] [address] , Ph. [phone] [facility] [place] [facility]_Ofc [facility] [id number] [facility] 2023-12-23 00:00:00 2023-12-23 00:00:00 MAYELA Williamson: [address] [place] [address] , Ph. [phone] [place] [facility] - FOG_Of[facility] [place] [id number] [facility] 2023-12-01 11:42:43 2023-12-01 12:29:47 Outpatient Elective LEO AMOS MHEOUT EOUT [id number] [facility] 2023-12-01 11:30:00 2023-12-01 12:29:47 Office Visit Leo Amos 1.2.840.114 350.1.13.70 8.2.7.2.686 [id number] Mirna prieto [facility] 2023-11-26 00:00:00 2023-11-30 10:15:23 Telephone Kristi Sharma Jessica [place] 1.2.840.114 350.1.13.70 8.2.7.2.686 [id number] Mirna prieto [facility] 2023-09-14 00:00:00 2023-09-14 00:00:00 Outpatient GC_GCBZW_Thelma galloway_S [facility] [id number] [facility] 2023-09-14 00:00:00 2023-09-14 00:00:00 Yadira Pedroza, SLUBBER TENDER: [address], [place] [address], [place] [address] , Ph. [facility] - GC_GCBZW_[facility]* [id number] [facility] 2022-11-13 00:00:00 2022-11-13 00:00:00 Outpatient FOG_A_Provi juan AOSM AOSM [id number] [facility] 2022-11-04 00:00:00 2022-11-04 00:00:00 Outpatient FOG_A_Provi juan AOSM AOSM [id number] [facility] 2022-11-04 00:00:00 2022-11-04 00:00:00 Outpatient FOG_A_Provi juan AOSM AOSM [id number] [facility] 2022-07-15 00:00:00 2022-07-15 00:00:00 Outpatient FOG_A_Provi juan AOSM AOSM [id number] [facility] 2022-06-06 00:00:00 2022-06-06 00:00:00 Outpatient FOG_A_Provi juan AOSM AOSM [id number] [facility] 2022-06-06 00:00:00 2022-06-06 00:00:00 Sukhwinder Perez MD: [address] [place] [address] , Ph. [phone] AOSM [place] [facility] - [facility]OG_Ofc [facility] [id number] [facility] 2022-06-05 00:00:00 2022-06-05 00:00:00 Outpatient FOG_A_Provi juan AOSM AOSM [id number] [facility] 2022-05-09 00:00:00 2022-05-09 00:00:00 Outpatient FOG_A_Provi juan AOSM AOSM [id number] [facility] 2022-05-09 00:00:00 2022-05-09 00:00:00 Sukhwinder Perez MD: [address] [place] [address] , Ph. [phone] AOS[facility] [place] [facility]_Ofc [facility] [id number] [facility] 2022-05-06 00:00:00 2022-05-06 00:00:00 Outpatient FOG_A_Provi juan AOSM AOSM [id number] [facility] 2022-04-29 00:00:00 2022-04-29 00:00:00 Outpatient FOG_A_Provi juan AOSM AOSM [id number] [facility] 2022-04-24 05:43:00 2022-04-25 14:13:00 Inpatient Sukhwinder Dickens HCAT[facility] SURG [id number] [address] [place] [address] [facility] 2022-04-24 00:00:00 2022-04-24 00:00:00 Sukhwinder Perez MD: [address] [place] [address] , Ph. [phone] [facility] [place] [facility] [id number] [facility] 2022-04-15 00:00:00 2022-04-15 00:00:00 Outpatient FOG_A_Provi juan AOSM AOSM [id number] [facility] 2022-03-17 00:00:00 2022-03-17 00:00:00 Outpatient FOG_A_Provi juan AOSM AOSM [id number] [facility] 2022-03-05 08:00:00 2022-03-05 23:00:00 Outpatient Sukhwinder Perez HCATO 3DAY [id number] [facility] 2022-03-05 19:04:00 2022-03-05 19:04:00 Outpatient Sukhwinder Perez HCACL LABO [id number] [facility] 2022-03-01 00:00:00 2022-03-01 00:00:00 Outpatient FOG_A_Provi juan AOSM AOSM [id number] [facility] 2022-02-25 00:00:00 2022-02-25 00:00:00 Outpatient FOG_A_Provi juan AOSM AOSM [id number] [facility] 2022-02-25 00:00:00 2022-02-25 00:00:00 Sukhwinder Perez MD: [address] [place] [address] , Ph. [phone] AOS[facility] [place] [facility]_Ofc [facility] [id number] [facility] 2022-02-25 00:00:00 2022-02-25 00:00:00 Outpatient Sukhwinder Perez AOSM AOSM [id number] 2022-02-12 11:49:00 2022-02-12 11:49:00 [facility] [id number] [facility] 2022-02-12 00:00:00 2022-02-12 00:00:00 Outpatient FOG_A_Provi juan AOSM AOSM [id number] [facility] 2022-02-12 00:00:00 2022-02-12 00:00:00 Outpatient Sukhwinder Perez Chapo AOSM AOSM [id number] 2022-02-12 00:00:00 2022-02-12 00:00:00 Sukhwinder Perez MD: [address] [place] [address] , Ph. [phone] [place] [place] [facility] [id number] [facility] 2022-02-05 00:00:00 2022-02-05 00:00:00 Outpatient FOG_A_Provi juan AOSM AOSM [id number] [facility] 2022-02-05 00:00:00 2022-02-05 00:00:00 Sukhwinder Perez MD: [address] [place] [address] , Ph. [phone] [place] [facility] [id number] [facility] 2022-02-05 00:00:00 2022-02-05 00:00:00 Outpatient Sukhwinder Perez Chapo AOSM AOSM [id number] 2022-02-03 00:00:00 2022-02-03 00:00:00 Outpatient FOG_A_Provi juan AOSM AOSM [id number] [facility] 2022-01-27 00:00:00 2022-01-27 00:00:00 Outpatient FOG_A_Provi juan AOSM [place] [id number] [facility] 2021-03-31 00:00:00 2021-03-31 00:00:00 Outpatient [facility] [id number] [facility] 2021-03-31 00:00:00 2021-03-31 00:00:00 Outpatient [facility] [id number] [facility] 2021-03-31 00:00:00 2021-03-31 00:00:00 Outpatient [facility] [id number] [facility] 2021-03-31 00:00:00 2021-03-31 00:00:00 Outpatient [facility] [id number] [facility] Medical Results Test Description Test Time Test Comments Results Resul t Comments Source - MRI L-SPINE W/O CONT 2024-01-13 10:53:00 [facility] 1940 Sex: F Patient Name: EJ PERKINS Unit No: [id number] EXAMS: CPT CODE: [id number] MRI L-SPINE W/O CONT [id number] DIAGNOSIS: 1. At L1-2 there is slight disc bulging and mild to moderate canal stenosis with facet degeneration. No foraminal narrowing is seen. 2. At L2-3 there is a degenerative grade 1 spondylolisthesis and disc bulging as well as 3 mm of posterior central cephalad disc extrusion. Facet degeneration is present with bilateral facet cysts left greater than right and severe canal stenosis. Moderate foraminal narrowing is seen. 3. At L3-4 there is a degenerative grade 1 spondylolisthesis with disc bulging. Moderate right and mild left foraminal narrowing is present. There is facet degeneration and a right-sided facet cyst with marked canal stenosis. 4. At L4-5 there is 3 mm of left foraminal disc protrusion and disc bulging extending to the right. Moderate foraminal narrowing is seen. Moderate canal stenosis is present with facet degeneration. 5. At L5-S1 there is 3 mm of left paracentral disc protrusion compressing the left L5 nerve root and disc bulging lateralizing left neural foramen. Mild to moderate narrowing is seen. Facet degeneration is present without canal stenosis. COMMENT: COMPARISON: No prior exams available. Scans were performed in the sagittal and axial planes utilizing T1, T2 and inversion recovery images. Endplate and disc degeneration is seen from L2 to S1. There is a mild scoliosis convex right. Disc configurations are as described. Spondylitic changes are as noted. The conus is in the expected location. The description these findings assumes a normal count of 5 lumbar type vertebra. at 1053 Reported and signed by: Alex Moncada MD CC: Sukhwinder Perez MD Technologist: ANILA HILL RT(R) Transcribed D/ (4983) [email or web address] [facility] NAME: EJ PERKINS OCTOBER [address] [facility] PHYS: Sukhwinder Brown MD : 1940 AGE: 83 SEX: F [place], [place] [address] LOC: Y.MRI PHONE #: [phone] EXAM DATE: 01/12/2024 STATUS: DEP CLI FAX #: [phone] RAD #: D/C DT PAGE 1 Signed Report Patient Name: EJ PERKINS OCTOBER Unit No: [id number] EXAMS: CPT CODE: [id number] MRI L-SPINE W/O CONT 37895 (Continued) Orig Print D/T: S: 01/13/2024 (1056) [facility] NAME: EJ PERKINS [address] [facility] PHYS: Sukhwinder Brown MD : 1940 AGE: 83 SEX: F [place], [place] [address] [facility] NO: [id number] LOC: YRAUL PHONE #: [phone] EXAM DATE: 01/12/2024 STATUS: DEP CLI FAX #: [phone] RAD #: D/C DT PAGE 2 Signed Report [facility] METABOLIC [id number] 06:45:00* Test Item Value Reference Range Interpretation Comme nts SODIUM (test code = NA) 136 mmol/L 136-145 N POTASSIUM (test code = K) 4.3 mmol/L 3.5-5.1 N CHLORIDE (test code = CL) 100.0 mmol/L 98-107 N CARBON DIOXIDE (test code = CO2) 29.9 mmol/L 21-32 N GLUCOSE (test code = GLU) 176 mg/dL 70-110 H BLOOD UREA NITROGEN (test code = BUN) 15 mg/dL 7-18 N GLOMERULAR FILTRATION RATE (test code = GFR) 56.6 >60 Unit of m easure: mL/min/1.73 [id number] Range:Healthy Adults >90 mL/min/1.73 m2 For Chronic Kidney Disease: Stage II Mild Decrease in GFR 60-90 Stage III Moderate Decrease in GFR 30-59 Stage IV Severe Decrease in GFR 15-29 Stage V Kidney Failure <15 CREATININE (test code = CREAT) 0.95 mg/dL 0.55-1.30 N CALCIUM (test code = CA) 9.0 mg/dL 8.2-10.1 N HGB [id number] 06:29:00* Test Item Value Reference Range Interpretation Comme nts HEMOGLOBIN (test code = HGB) 14.0 g/dL 12-16 N HEMATOCRIT (test code = HCT) 41.0 % 37-47 N Hemoglobin and Hematocrit panel - [id number] 05:25:00* Test Item Value Reference Range Interpretation Comme nts hemoglobin (test code = hemoglobin) 14.0 g/dL 12-16 hematocrit (test code = hematocrit) 41.0 % 37-47 performing lab: (test code = performing lab:) [facility] Sports MedicineCOMPREHENSIVE METABOLIC [id number] 18:21:00* Test Item Value Reference Range Interpretation Comme nts SODIUM (test code = NA) 144 mmol/L 136-145 N POTASSIUM (test code = K) 4.1 mmol/L 3.5-5.1 N CHLORIDE (test code = CL) 104.0 mmol/L 98-107 N CARBON DIOXIDE (test code = CO2) 33.0 mmol/L 21-32 H GLUCOSE (test code = GLU) 83 mg/dL 70-110 N BLOOD UREA NITROGEN (test code = BUN) 13 mg/dL 7-18 N GLOMERULAR FILTRATION RATE (test code = GFR) 72.1 >60 Unit of m easure: mL/min/1.73 [id number] Range:Healthy Adults >90 mL/min/1.73 m2 For Chronic Kidney Disease: Stage II Mild Decrease in GFR 60-90 Stage III Moderate Decrease in GFR 30-59 Stage IV Severe Decrease in GFR 15-29 Stage V Kidney Failure <15 CREATININE (test code = CREAT) 0.77 mg/dL 0.55-1.30 N TOTAL PROTEIN (test code = PROT) 6.7 g/dL 6.4-8.2 N ALBUMIN (test code = ALB) 3.8 g/dL 3.4-5.0 N GLOBULIN (test code = GLOB) 2.9 g/dL 2.2-4.2 N ALBUMIN/GLOBULIN RATIO (test code = A/G) 1.3 0.7-2.0 N CALCIUM (test code = CA) 9.3 mg/dL 8.2-10.1 N BILIRUBIN TOTAL (test code = BILT) 0.80 mg/dL 0.2-1.00 N SGOT/AST (test code = AST) 26.0 U/L 15-37 N SGPT/ALT (test code = ALT) 29.0 U/L 12-78 N Please note new normal range. ALKALINE PHOSPHATASE TOTAL (test code = ALKP) 95 U/L 46-116 N CBC W/AUTO [id number] 17:08:00* Test Item Value Reference Range Interpretation Comme nts WHITE BLOOD CELL (test code = WBC) 7.2 K/mm3 5.8-11.0 N RED BLOOD CELL (test code = RBC) 4.74 M/mm3 4.2-5.4 N HEMOGLOBIN (test code = HGB) 14.8 g/dL 12-16 N HEMATOCRIT (test code = HCT) 43.5 % 37-47 N MEAN CELL VOLUME (test code = MCV) 92 fL 80-98 N MEAN CELL HGB (test code = MCH) 31.2 pg 27-34 N MEAN CELL HGB CONCENTRATION (test code = MCHC) 34.0 g/dL 30.8-34.1 N RED CELL DISTRIBUTION WIDTH (test code = RDW) 13.2 % 11-16 N PLT (test code = PLT) 253 K/mm3 130-400 N MEAN PLATELET VOLUME (test c ode = MPV) 10.7 fL 8.9-12.1 N NEUTROPHIL % (test code = NT%) 62.0 % 45-70 N LYMPHOCYTE % (test code = LY%) 24.1 % 20-40 N MONOCYTE % (test code = MO%) 10.3 % 3-10 H EOSINOPHIL % (test code = EO%) 2.4 % 1-5 N BASOPHIL % (test code = BA%) 1.1 % 0.0-1.1 N NEUTROPHIL # (test code = NT#) 4.45 K/mm3 2.00-7.50 N LYMPHOCYTE # (test code = LY#) 1.73 K/mm3 1.50-4.00 N MONOCYTE # (test code = MO#) 0.74 K/mm3 0.2-0.8 N EOSINOPHIL # (test code = EO#) 0.17 K/mm3 0.04-0.4 N BASOPHIL # (test code = BA#) 0.08 K/mm3 0.02-0.10 N MANUAL DIFF REQUIRED (test c ode = MDIFF) NO MANUAL DIFF NUCLEATED RED BLOOD CELL (te st code = NRBC) 0 % 0-0 N PROTHROMBIN [id number] 16:59:00* Test Item Value Reference Range Interpretation Comme nts PROTHROMBIN TIME PATIENT (test code = PTP) 10.5 secs 9.7-12.5 N Please note new normal range. INTERNATIONAL NORMAL RATIO (test code = INR) 0.95 <2.0 RECOMMENDED THER APEUTIC RANGE FOR ORAL ANTICOAGULANTTREATMENT: CONDITION INRProphylaxis of venous thrombosis in 2.0 - 3.0 high-risk medical or surgical patientsTreatment of venous thrombosis 2.0 - 3.0Prevention of embolism 2.0 - 3.0Prevention of recurrent embolism, or 3.0 - 4.5 patients with mechanical prosthetic intravascular valves IS PATIENT ON ANTICOAGULANTS ? NHas Lab been notified if Patient is on Heparin Drip? NOTHROMBOPLASTIN TIME [id number] 16:59:00* Test Item Value Reference Range Interpretation Comme nts PTT ACTIVATED (test code = APTT) 32.8 secs 26.6-34.6 N Please note new normal range. IS PATIENT ON ANTICOAGULANTS ? NHas Lab been notified if Patient is on Heparin Drip? NO- MRI C-SPINE W/O [id number] 14:50:00 [facility] 1940 Sex: F Patient Name: BERRY PERKINS Unit No: [id number] EXAMS: CPT CODE: [id number] MRI C-SPINE W/O CONT [id number]: 1. At C2-3 there is 3 mm of central disc protrusion with caudal extrusion. The canal is lower limits of normal in size. Moderate left and mild right foraminal narrowing is seen with asymmetric right facet degeneration. 2. At C3-4 there is 3 mm of central disc protrusion with cord impingement. The canal is stenotic with an AP diameter of 8 mm. Marked bilateral foraminal narrowing is present with asymmetric left facet degeneration. 3. At C4-5 there is a grade 1 degenerative spondylolisthesis with 3 mm of central and right posterior lateral disc bulging with cord impingement. The canal is stenotic with an AP diameter of 9 mm. Marked left and mild right foraminal narrowing is seen with asymmetric left facet degeneration. 4. At C5-6 there is an plate spur formation and disc bulging lateralizing right posterior lateral with cord impingement. The canal is stenotic with an AP diameter of 8 mm. Marked right and moderate to marked left foraminal narrowing is seen with facet degeneration. 5. At C6-7 there is endplate spur formation and 3 mm of disc bulging lateralizing left posterior lateral and foraminal. The canal is stenotic with an AP diameter of 8 mm. Marked left and mild right foraminal narrowing is seen. 6. At C7-T1 there is 3 mm of central disc protrusion with cephalad and caudal extrusion impinging on the cord. The canal is stenotic with an AP diameter of 8 mm. There is marked left and moderate to marked right foraminal narrowing. COMMENT: COMPARISON: No prior examsavailable. Scans were performed in the sagittal and axial planes utilizing T1, gradient echo, T2 and inversion recovery images. Endplate and disc degeneration is present at all levels. The cord appears normal in size and signal. [id number] Reported and signed by: Alex Moncada MD CC: Sukhwinder Perez MD Technologist: Johnson Joyner(R) Transcribed D/ (4473) [id number] [facility] NAME: BERRY PERKINS [address] [facility] PHYS: Sukhwinder Brown MD : 1940 AGE: 81 SEX: F [place] [address] LOC: Y.MRI PHONE #: [phone] EXAM DATE: 02/12/2022 STATUS: REGCLI FAX #: [phone] RAD #: D/C DT PAGE 1 Signed Report Patient Name: BERRY PERKINS Unit No: [id number] EXAMS: CPT CODE: [id number] MRI C-SPINE W/O CONT [id number] (Continued) Orig Print D/T: S: 02/12/2022 (1919) [facility] NAME: BERRY PERKINS [address] [facility] PHYS: Sukhwinder Brown MD : 1940 AGE: 81 SEX: F [place] [address] LOC: Y.MRI PHONE #: [phone] EXAM DATE: 02/12/2022 STATUS: REG CLI FAX #: [phone] RAD #: D/C DT PAGE 2 Signed Report
[2024-06-29 14:21] LABS: SARS-CoV-2 Antigen CONTROL BLUE LINE VIS/BG OK; SARS-CoV-2 Antigen Rapid Res Negative (Negative)
--- NOTE | 2024-06-29 14:24 | ER ---
Nurse's Notes [facility] Name: Kym Guallpa Age: 83 yrs Sex: Female : 1940 Arrival Date: 06/29/2024 Time: 12:21 Bed 19 Private MD: Diagnosis: Acute bronchitis, unspecified;Cough;Viral infection, unspecified Presentation: 06/29 12:38 Chief complaint: Patient states: Cough, lost voice, nasal congestion, yellow sputum for ll1 2 weeks. Coronavirus screen: Client denies travel out of the [place] in the last 14 days. congestion, cough unrelated to allergies, fatigue, Client presents with at least one sign or symptom that may indicate coronavirus-19. Standard/surgical mask placed on the client. Ebola Screen: Patient denies travel to an Ebola-affected area in the 21 days before illness onset. Initial Sepsis Screen: Does the patient meet any 2 criteria? No. Patient's initial sepsis screen is negative. Does the patient have a suspected source of infection? No. Patient's initial sepsis screen is negative. Risk Assessment: Do you want to hurt yourself or someone else? Patient reports no desire to harm self or others. Onset of symptoms was June 12, 2024. 12:38 Method Of Arrival: Ambulatory ll1 12:38 Acuity: [place] 3 ll1 Triage Assessment: 12:52 General: Appears uncomfortable, ill, Behavior is calm, cooperative, appropriate for ll1 age. Pain: Complains of pain in tongue Quality of pain is described as aching. EENT: Reports nasal congestion nasal discharge lost voice. Neuro: Reports headache. Respiratory: Reports cough that is dry. Historical: - Allergies: 12:39 No Known Allergies; ll1 - Home Meds: 12:39 atorvastatin 40 mg oral tablet 1 tab daily [Active]; cholecalciferol (vitamin D3) 50 ll1 mcg (2,000 unit) oral Tablet,disintegrating daily [Active]; Librax (with clidinium) 5-2.5 mg Oral capsule 1 cap as needed for adjunct therapy for irritable bowel syndrome [Active]; magnesium oxide 250 mg magnesium Oral tablet once [Active]; memantine 5 mg oral tablet 2 times per day [Active]; metoprolol tartrate 25 mg Oral tablet 1 tab 2 times per day [Active]; multivit with [id number] 0.4-600 mg-mcg oral capsule daily [Active]; pantoprazole 40 mg oral granules delayed release for susp packet before meals [Active]; Synthroid 75 mcg Oral tablet daily [Active]; zinc gluconate 50 mg oral tablet daily [Active]; - PMHx: 12:39 Diverticulitis; Hypertensive disorder; Hypothyroidism; ll1 - Immunization history:: Adult Immunizations up to date. - Infectious Disease History:: Denies. - Social history:: Smoking status: Patient denies any tobacco usage or history of. Screenin:00 [facility] ED Fall Risk Assessment (Adult) History of falling in the last 3 months, jl7 including since admission No falls in past 3 months (0 pts) Confusion or Disorientation No (0 pts) Intoxicated or Sedated No (0 pts) Impaired Gait No (0 pts) Mobility Assist Device Used No (0 pt) Altered Elimination No (0 pt) Score/Fall Risk Level 0 - 2 = Low Risk Oriented to surroundings, Maintained a safe environment. Abuse screen: Denies threats or abuse. Denies injuries from another. Nutritional screening: No deficits noted. Tuberculosis screening: No symptoms or risk factors identified. Vital Signs: 12:38 BP 188 / 94; Pulse 71; Resp 17; Temp 97.4; Pulse Ox 96% on R/A; Weight 61.23 kg; Height ll1 5 ft. 4 in. ; Pain 0/10; 12:38 Body Mass Index 23.17 (61.23 kg, 162.56 cm) ll1 12:38 Pain Scale: Adult ll1 ED Course: 12:29 Patient arrived in ED. im 12:36 Brodie Chapman MD is Attending Physician. bo1 12:39 Triage completed. ll1 12:43 Arm band placed on. ll1 12:48 Flu Sent. ll1 12:48 Strep Sent. ll1 12:48 SARS-COV-2 Antigen Rapid Sent. ll1 12:52 Flu and/or RSV swab sent to lab. Strep swab sent to lab. ll1 13:10 Luke Dewitt, NANDO is Primary Nurse. bp 14:22 James Zuniga DDS is Referral Physician. bo1 15:06 Patient has correct armband on for positive identification. Provided Education on: jl7 discharge. 15:06 No provider procedures requiring assistance completed. Patient did not have IV access jl7 during this emergency room visit. Administered Medications: No medications were administered Medication: 15:05 VIS not applicable for this client. jl7 Outcome: 14:23 Discharge ordered by . bo1 15:06 Discharged to home ambulatory, jl7 15:06 Condition: stable 15:06 Discharge instructions given to patient, family, Instructed on discharge instructions, follow up and referral plans. medication usage, Demonstrated understanding of instructions, follow-up care, medications, Prescriptions given X 3, 15:06 Patient left the ED. jl7 Signatures: Edgar Kelsey RN RN jl7 Luke Dewitt RN RN bp Krysta Christy RN RN ll1 Gema Barbosa Benjamin, MD MD bo1 Corrections: (The following items were deleted from the chart) 12:43 12:38 Acuity: [place] 4 ll1 ll1
--- NOTE | 2024-06-29 14:24 | EDPHYS ---
Physician Documentation [facility] Name: Kym Guallpa Age: 83 yrs Sex: Female : 1940 Arrival Date: 06/29/2024 Time: 12:21 Bed 19 Private MD: ED Physician Brodie Chapman HPI: 06/29 14:15 This 83 yrs old Female presents to ER via Ambulatory with complaints of Sore Throat, bo1 Flu Symptoms. 14:15 The patient presents with sore throat, Loss of voice 1-2 weeks ago. The patient bo1 describes throat pain as burning. Onset: The symptoms/episode began/occurred gradually, 2 week(s) ago. Hx of sputum turned from clear to yellow (thick) today. Historical: - Allergies: 12:39 No Known Allergies; ll1 - Home Meds: 12:39 atorvastatin 40 mg oral tablet 1 tab daily [Active]; cholecalciferol (vitamin D3) 50 ll1 mcg (2,000 unit) oral Tablet,disintegrating daily [Active]; Librax (with clidinium) 5-2.5 mg Oral capsule 1 cap as needed for adjunct therapy for irritable bowel syndrome [Active]; magnesium oxide 250 mg magnesium Oral tablet once [Active]; memantine 5 mg oral tablet 2 times per day [Active]; metoprolol tartrate 25 mg Oral tablet 1 tab 2 times per day [Active]; multivit with [id number] 0.4-600 mg-mcg oral capsule daily [Active]; pantoprazole 40 mg oral granules delayed release for susp packet before meals [Active]; Synthroid 75 mcg Oral tablet daily [Active]; zinc gluconate 50 mg oral tablet daily [Active]; - PMHx: 12:39 Diverticulitis; Hypertensive disorder; Hypothyroidism; ll1 - Immunization history:: Adult Immunizations up to date. - Infectious Disease History:: Denies. - Social history:: Smoking status: Patient denies any tobacco usage or history of. ROS: 14:13 Constitutional: Negative for fever, chills, and weight loss bo1 14:13 Constitutional: Negative for body aches, chills, fever, 14:13 ENT: Positive for sore throat, "burning mouth syndrome", 14:13 Neck: Negative for mass, pain with movement, pain at rest, swollen nodes, 14:13 Cardiovascular: Negative for chest pain, 14:13 Respiratory: Positive for cough, Sputum (yellow thick samples in a kleenex), Negative for shortness of breath, 14:13 Abdomen/GI: Negative for abdominal pain, nausea and vomiting, 14:13 MS/extremity: Negative for acute changes, rash, 14:13 Neuro: Positive for Poor memory, 14:13 All other systems are negative, Exam: 14:17 Constitutional: This is a well developed, well nourished patient who is awake, alert, bo1 and in no acute distress. 14:17 Constitutional: The patient appears alert, awake, comfortable, non-toxic, Wearing hearing aids 14:17 ENT: External ear(s): are unremarkable, Ear canal(s): are normal, TM's: are normal, Nose: is normal, Posterior pharynx: Airway: patent, swelling, is not appreciated, erythema, that is mild, exudate, is not appreciated, Pt has on occasion "bitten" her tongue during sleep/rest, 14:17 Neck: External neck: is normal, no acute changes, Lymph nodes: no appreciated lymphadenopathy, 14:17 Cardiovascular: Rate: normal, Rhythm: regular, Pulses: no pulse deficits are appreciated, 14:17 Respiratory: the patient does not display signs of respiratory distress, Respirations: normal, Breath sounds: are clear throughout, 14:17 Musculoskeletal/extremity: DVT Exam: no pain, no swelling, no tenderness, Calves: are non-tender, 14:17 Skin: no rash present. Vital Signs: 12:38 BP 188 / 94; Pulse 71; Resp 17; Temp 97.4; Pulse Ox 96% on R/A; Weight 61.23 kg; Height ll1 5 ft. 4 in. ; Pain 0/10; 12:38 Body Mass Index 23.17 (61.23 kg, 162.56 cm) ll1 12:38 Pain Scale: Adult ll1 MDM: 12:36 Medical Screening Exam initiated bo1 14:20 Differential diagnosis: bronchitis, viral syndrome. bo1 14:21 Data reviewed: vital signs, lab test result(s). ED course: Pt's current illness is bo1 advancing to a bacterial etiology, she agrees to be placed on PO abx for atypical. 06/29 12:37 Order name: Flu; Complete Time: 14:27 bo1 06/29 12:37 Order name: Strep bo1 06/29 12:37 Order name: SARS-COV-2 Antigen Rapid; Complete Time: 14:27 bo1 06/29 14:23 Order name: Throat Culture EDMS Administered Medications: No medications were administered Disposition Summary: 06/29/24 14:23 Discharge Ordered Notes: Location: Home bo1 Problem: new bo1 Symptoms: are unchanged bo1 Condition: Stable bo1 Diagnosis - Acute bronchitis, unspecified bo1 - Cough bo1 - Viral infection, unspecified bo1 Followup: bo1 - With: Private Physician - When: Upon discharge from the Emergency Department - Reason: Recheck today's complaints, Continuance of care Followup: bo1 - With: James Zuniga DDS - When: Upon discharge from the Emergency Department - Reason: Recheck today's complaints, Continuance of care Discharge Instructions: - Discharge Summary Sheet bo1 - Acute Bronchitis, Adult bo1 - Cough, Adult bo1 Forms: - Medication Reconciliation Form bo1 - Antibiotic Education bo1 - Prescription Opioid Use bo1 - Patient Portal Instructions bo1 - Leadership Thank You Letter bo1 Prescriptions: - Mucinex 600 mg Oral Tablet,Extended Release 12 hr - take 2 tablet ORAL route every 12 hours; 20 tablet; Refills: 0, Product bo1 Selection Permitted - azithromycin 250 mg Oral tablet - take 1 tablet ORAL route daily for 10 days; 10 tablet; Refills: 0, Product bo1 Selection Permitted - Tessalon Perles 100 mg Oral Capsule - take 1 capsule ORAL route every 8 hours As needed; 15 capsule; Refills: 0, bo1 Product Selection Permitted Signatures: Dispatcher [employer] EDEdgar Miller RN RN jl7 Krysta Christy RN RN ll1 Brodie Chapman MD MD bo1
[2024-06-29 16:10] VITALS: BP 188/94; TEMP 97.4; O2SAT 96
== END 2024-06-29 15:06 | disposition home or self-care (01) ==
LOC: ER 12:21
DX: J20.9 Acute bronchitis, unspecified (principal); Z11.52 Encounter for screening for COVID-19
CPT/HCPCS: 36415; 87070; 87081; 87804; 87811; 99283